=== PATIENT | male | born 1975 | race Caucasian/White ===

== ENCOUNTER 2019-02-15 10:02 | Emergency (ER) | payer OTHER ==
[2019-02-15] MEDS ORDERED: Metoprolol 1 mg/ml Inj IVP STA (11:07)
[2019-02-15] MEDS ORDERED: Metoprolol 1 mg/ml Inj ONE (11:15)
--- NOTE | 2019-02-15 11:41 | RAD ---
HISTORY: chest pain COMPARISON: None available TECHNIQUE: Chest, one view. FINDINGS: Examination limited by habitus and hypoinflation. LUNGS: No focal consolidation. Please note that chest x-ray has limited sensitivity for the detection of pulmonary masses. PLEURA: No significant pleural effusion identified. No definite pneumothorax . CARDIOVASCULAR: Cardiomediastinal silhouette appears top normal likely exaggerated by hypoinflation. Ectatic aorta. No significant atherosclerotic calcification present. OSSEOUS STRUCTURES: No acute osseous abnormality identified. VISUALIZED UPPER ABDOMEN: Unremarkable. OTHER FINDINGS: None. IMPRESSION: Hypoinflation. No focal consolidation identified.
[2019-02-15 11:53] LABS: BASO % 0.2 % (0.0-2.0); EOS # 0.2 K/uL (0.0-0.7); EOS % 2.4 % (0.0-4.0); HEMOGLOBIN 15.2 g/dL (12.0-18.0); LYMPH # 2.2 K/uL (1.0-4.3); LYMPH % 33.1 % (20.0-40.0); MEAN CELL VOLUME 92.2 fL (80.0-94.0); MEAN CORPUSCULAR HEMOGLOBIN 31.9 pg (27.0-31.0); MEAN CORPUSCULAR HGB CONC 34.6 g/dL (33.0-37.0); MEAN PLATELET VOLUME 10.3 fL (7.2-11.7); MONO # 0.6 K/uL (0.0-0.8); MONO % 8.8 % (0.0-10.0); NEUT # 3.6 K/uL (1.8-7.0); NEUT % 55.5 % (50.0-75.0); NRBC % 0.1 % (0.0-2.0); RBC 4.76 Mil/uL (4.40-5.90); RED CELL DISTRIBUTION WIDTH 15.3 % (11.5-14.5); WHITE BLOOD COUNT 6.6 K/uL (4.8-10.8)
[2019-02-15 12:01] LABS: PROTHROMBIN TIME 11.3 SECONDS (9.7-12.2)
[2019-02-15 12:18] LABS: B-TYPE NATRIURETIC PEPTIDE 15.5 pg/mL (0-450)
[2019-02-15 12:20] LABS: ALB/GLOB RATIO 1.7 (1.0-2.1); ALBUMIN 4.2 g/dL (3.5-5.0); ALT/SGPT 16 U/L (21-72); AST/SGOT 21 U/L (17-59); BLOOD UREA NITROGEN 26 mg/dL (9-20); CALCIUM 9.4 mg/dl (8.6-10.4); GFR NON-AFRICAN AMERICAN > 60
--- NOTE | 2019-02-15 12:33 | C.PDOC ---
History Of Present Illness 43 year old male presents to ED with complaint of left-sided chest pain for the past week. Patient reports that the pain is worsened with movement and associated with cough. Patient also states that his blood pressure has been high. Patient denies fever, trauma, numbness, weakness, hemoptysis, SOB. Time Seen by Provider: 02/15/19 10:31 Chief Complaint (Nursing): Chest Pain History Per: Patient History/Exam Limitations: no limitations Onset/Duration Of Symptoms: Days (7) Current Symptoms Are (Timing): Still Present Severity: Moderate Pain Scale Rating Of: 5 Quality: "Pain" Associated Symptoms: Dyspnea Modifying Factors: None Exacerbating Factors: Turning, Movement Alleviating Factors: None Past Medical History Reviewed: Historical Data, Nursing Documentation, Vital Signs Vital Signs: Last Vital Signs Temp 97.6 F 02/15/19 10:05 Pulse 96 H 02/15/19 11:36 Resp 15 02/15/19 11:36 BP 167/111 H 02/15/19 11:36 Pulse Ox 97 02/15/19 11:36 - Medical History PMH: HTN Surgical History: No Surg Hx - [facility] Procedures ALCOHOL DETOXIFICATION (02/10/14) INDIVID PSYCHOTHERAP NEC (02/10/14) OTHER GROUP THERAPY (02/10/14) Family History: States: Unknown Family Hx - Social History Hx Alcohol Use: No Hx Substance Use: No - Immunization History Hx Tetanus Toxoid Vaccination: No Hx Influenza Vaccination: No Hx Pneumococcal Vaccination: No Review Of Systems Constitutional: Negative for: Fever Cardiovascular: Positive for: Chest Pain (left-sided), Palpitations Respiratory: Negative for: Shortness of Breath, Pleuritic Pain Musculoskeletal: Positive for: Back Pain Physical Exam - Physical Exam Appears: Non-toxic, No Acute Distress Skin: Normal Color, Warm, Dry, No Rash Head: Atraumatic, Normacephalic Eye(s): bilateral: Normal Inspection, PERRL, EOMI Ear(s): Bilateral: Normal Oral Mucosa: Moist Throat: No Erythema, No Exudate Neck: Normal ROM, Supple Chest: Symmetrical, No Deformity Cardiovascular: Rhythm Regular, No Friction Rub, No Murmur Respiratory: No Accessory Muscle Use, No Rales, No Rhonchi, No Wheezing Gastrointestinal/Abdominal: Soft, No Tenderness Back: Normal Inspection, No CVA Tenderness Extremity: Normal ROM, Capillary Refill (<2 seconds), No Swelling Pulses: Left Dorsalis Pedis: Normal, Right Dorsalis Pedis: Normal Neurological/Psych: Oriented x3, Normal Speech, Normal Cognition, Normal Motor, Normal Sensation Gait: Steady ED Course And Treatment - Laboratory Results Result Diagrams: 02/15/19 11:44 02/15/19 11:44 Lab Results: PT 11.3 SECONDS (9.7-12.2) 02/15/19 11:44 INR 1.0 02/15/19 11:44 APTT 32 SECONDS (21-34) 02/15/19 11:44 Troponin I < 0.0120 ng/mL (0.00-0.120) 02/15/19 11:44 NT-Pro-B Natriuret Pep 15.5 pg/mL (0-450) 02/15/19 11:44 Total Bilirubin 0.5 mg/dL (0.2-1.3) 02/15/19 11:44 AST 21 U/L (17-59) 02/15/19 11:44 ALT 16 U/L (21-72) L 02/15/19 11:44 Alkaline Phosphatase 78 U/L (38-126) 02/15/19 11:44 Total Protein 6.7 g/dL (6.3-8.3) 02/15/19 11:44 Albumin 4.2 g/dL (3.5-5.0) 02/15/19 11:44 Globulin 2.5 gm/dL (2.2-3.9) 02/15/19 11:44 Albumin/Globulin Ratio 1.7 (1.0-2.1) 02/15/19 11:44 ECG: Interpreted By Me, Viewed By Me ECG Rhythm: Sinus Rhythm ECG Interpretation: Normal Interpretation Of ECG: Normal axis. Normal ST/T waves. Rate From EC O2 Sat by Pulse Oximetry: 97 (in RA) Pulse Ox Interpretation: Normal - Other Rad CXR X-Ray: Interpreted by Me, Viewed By Me Interpretation: IMPRESSION: Hypoinflation. No focal consolidation identified. Medical Decision Making Medical Decision Making: Prior records checked, no prior visits in the past 2 years. Plan: Labs ordered with CBC, CMP, and UA EKG and CXR ordered for patient Patient given metroprolol and BP improved. Patient was instructed on High BP and need to be compliant with medications. On re-exam, the patient reports improvement of symptoms. Lungs are CTA, heart is RR R, abdomen is soft, non-tender and tolerating PO well. Pt is ambulatory in the ED with steady gait. Follow up with the medical doctor within 1-2 days. Return if worsened. Disposition - Disposition Referrals: [facility] [Outside] Disposition: HOME/ ROUTINE Disposition Time: 14:16 Condition: GOOD Additional Instructions: Follow up with the medical doctor within 1-2 days. Return if worsened. Prescriptions: Fluticasone Propionate [Flonase] 1 spr NS DAILY #100 spr Ibuprofen [Motrin] 1 tab PO TID PRN #30 tab PRN Reason: Pain Loratadine [Claritin] 10 mg PO DAILY #10 tab Instructions: Pleuritic Chest Pain, Seasonal Allergies in Adults Forms: [employer] (Norwegian) Print Language: ANDORRAN - Clinical Impression Clinical Impression: Pleuritic pain, Allergic rhinitis - PA / [employer] / Resident Statement MD/DO has reviewed & agrees with the documentation as recorded. (Earlene Collins) - Scribe Statement The provider has reviewed the documentation as recorded by the Scribe (Earlene Collins) All medical record entries made by the Scribe were at my direction and personally dictated by me. I have reviewed the chart and agree that the record accurately reflects my personal performance of the history, physical exam, medical decision making, and the department course for this patient. I have also personally directed, reviewed, and agree with the discharge instructions and disposition.
[2019-02-15 13:43] LABS: URINE BILIRUBIN NEGATIVE (NEGATIVE); URINE BLOOD NEGATIVE (NEGATIVE); URINE CLARITY CLEAR (Clear); URINE COLOR YELLOW (YELLOW); URINE GLUCOSE (UA) Normal (Normal); URINE PROTEIN NEGATIVE (NEGATIVE); URINE UROBILINOGEN 0.2 mg/dL (0.2-1.0)
[2019-02-15 13:44] LABS: URINE LEUKOCYTE ESTERASE Negative Leu/uL (Negative)
[2019-02-15 14:44] VITALS: BP 168/108; PULSE 83; RESP 24; TEMP 97.7; O2SAT 98
--- NOTE | 2019-02-16 20:25 | CARD ---
APPROVED REPORT Date of service: 02/15/2019 EKG Measurement Heart [id number] <Conclusion> Normal sinus rhythm Normal ECG
== END 2019-02-15 14:43 | disposition home or self-care (01) ==
LOC: C.ER 10:02
DX: R07.81 Pleurodynia (principal); J30.9 Allergic rhinitis, unspecified; I10 Essential (primary) hypertension
CPT/HCPCS: 71045; 80053; 81001; 83880; 84484; 85025; 85610; 85730; 93005; 96374; 96375; 99285; J1885